=== PATIENT | male | born 1995 | race Caucasian/White ===

== ENCOUNTER 2024-02-25 11:21 | Outpatient (CLI) | payer SELFPAY ==
[2024-02-25 14:16] LABS: Side 1 65; Side 2 66; Side WITHIN 10% 2; Sperm Count 65.5 mill/mL (40-160)
[2024-02-25 14:17] LABS: Sperm Immotility 30 % (50-60); Sperm Non-Progressive Motility 10 % (5-10); Sperm Progressive Motility 60 % (31-34); Viscosity Semen Droplets; Volume Semen 5.5 mL (2-5); White Blood Count Semen Rare /hpf
[2024-02-25 14:18] LABS: Pathology Referral Yes
== END 2024-02-25 11:22 | disposition home or self-care (01) ==
LOC: LAB 11:23
PROVIDERS: Visit Provider Obstetrics & Gynecology
DX: Z01.89 Encounter for other specified special examinations (principal)
CPT/HCPCS: 80503; 89320